=== PATIENT | female | born 2000 | race Caucasian/White ===

== ENCOUNTER 2021-05-27 10:12 | Outpatient (CLI) | payer BC | END 2021-05-27 10:13 | disposition home or self-care (01) | LOC: CSHCT 10:12 | PROVIDERS: ATTEND Physician Assistant | DX: G44.021 Chronic cluster headache, intractable (principal) | CPT/HCPCS: 70450 ==

== ENCOUNTER 2024-05-18 17:38 | Day surgery (SDC) | payer BC ==
[2024-05-18 18:07] VITALS: BMI 31.4
[2024-05-18] MEDS ORDERED: hydrALAZINE 20 MG/ML VIAL SLOW IVP PRN (18:20)
[2024-05-18 19:15] LABS: #Basophils 0.04 10x3/uL (0.0-0.2); #Eosinophils 0.07 10x3/uL (0.0-0.5); #Neutrophils 7.42 10x3/uL (1.5-8.4); %Basophils 0.4 % (0.0-2.0); %Eosinophils 0.7 % (0.0-6.0); %Lymphocytes 18.5 % (18.0-47.0); %Monocytes 8.6 % (0.0-10.0); Hematocrit 36.9 % (34.9-44.5); Hemoglobin 12.3 g/dL (12.0-15.5); Mean Corpuscular HGB CONC 33.3 g/dL (32.0-36.0); Mean Corpuscular Hemoglobin 29.2 pg (27.0-33.0); Mean Corpuscular Volume 87.6 fL (81.6-98.3); Mean Platelet Volume 12.2 fL (7.4-10.4); Platelet Count 238 10x3/uL (150-450); RBC Distribution Width 12.5 % (11.5-14.5); Red Blood Cell (RBC) Count 4.21 10x6/uL (3.90-5.03); White Blood Cell (WBC) Count 10.44 10x3/uL (3.5-10.5)
[2024-05-18 19:42] LABS: ALT (SGPT) 10 U/L (8-55); AST (SGOT) 15 U/L (5-34); Albumin 2.8 g/dL (3.5-5.0); Alkaline Phosphatase 122 U/L (40-110); Anion Gap 11 mmol/L (10-20); BUN (Urea Nitrogen) Less than 4 mg/dL (7.0-18.7); Bilirubin, Total 0.5 mg/dL (0.2-1.2); Calc. Creatinine Clearance 205 mL/min (70-130); Calcium 8.7 mg/dL (7.8-10.44); Carbon Dioxide 20 mmol/L (22-29); Chloride 109 mmol/L (98-107); Estimated GFR 130; Globulin 3.3 g/dL (2.4-3.5); Glucose 77 mg/dL (70-105); Potassium 3.2 mmol/L (3.5-5.1); Protein, Total 6.1 g/dL (6.0-8.3); Sodium 137 mmol/L (136-145)
[2024-05-18 19:45] LABS: Creatinine, Urine 29.94 mg/dL (47-110); Protein, Urine Random Quant Less than 10 mg/dL (1-14)
== END 2024-05-18 20:25 | disposition home or self-care (01) ==
LOC: CSHLD/OP 17:38
PROVIDERS: ATTEND Obstetrics & Gynecology
DX: O99.891 Other specified diseases and conditions complicating pregnancy (principal); R03.0 Elevated blood-pressure reading, without diagnosis of hypertension; O12.03 Gestational edema, third trimester; Z3A.39 39 weeks gestation of pregnancy; Z79.899 Other long term (current) drug therapy
CPT/HCPCS: 36415; 80053; 82570; 84156; 85025; 99283

== ENCOUNTER 2024-05-28 17:47 | Inpatient (IN) | payer BC ==
[2024-05-28] MEDS ORDERED: Lactated Ringer's 1,000 ML IV SCH (17:50)
[2024-05-28] MEDS ORDERED: Butorphanol Tartrate 1 MG/ML VIAL SLOW IVP PRN (17:50)
[2024-05-28] MEDS ORDERED: Oxytocin 30 units/NS 500 ML 500 ML IV SCH ×2 (17:50)
[2024-05-28] MEDS ORDERED: hydrALAZINE 20 MG/ML VIAL SLOW IVP PRN (17:50)
[2024-05-28] MEDS ORDERED: Lidocaine 1% (PF) 30 ML VIAL SC PRN (17:50)
[2024-05-28] MEDS ORDERED: HYDROcodone/Acetaminophen 5/325 mg Tablet PO PRN ×2 (17:50)
[2024-05-28] MEDS ORDERED: Ibuprofen 800 MG TAB PO PRN (17:50)
[2024-05-28] MEDS ORDERED: Promethazine HCl 25 MG/ML VIAL IM PRN (17:50)
[2024-05-28 18:16] VITALS: BMI 30.9
[2024-05-28] MEDS: Misoprostol 100 MCG TAB VAG SCH (18:51)
[2024-05-28 20:34] LABS: Hemoglobin 12.1 g/dL (12.0-15.5); Mean Corpuscular HGB CONC 33.6 g/dL (32.0-36.0); Mean Corpuscular Hemoglobin 28.9 pg (27.0-33.0); Mean Corpuscular Volume 85.9 fL (81.6-98.3); Mean Platelet Volume 12.9 fL (7.4-10.4); Platelet Count 225 10x3/uL (150-450); RBC Distribution Width 12.6 % (11.5-14.5); Red Blood Cell (RBC) Count 4.19 10x6/uL (3.90-5.03); White Blood Cell (WBC) Count 10.69 10x3/uL (3.5-10.5)
[2024-05-28 21:05] LABS: Syphilis Antibody Nonreactive (Nonreactive); Syphilis Antibody Index 0.03 S/CO (<1.00 Non-Reactive)
[2024-05-28 21:06] LABS: HBsAg Index 0.22 S/CO (0-0.99); Hep B Surf Ag - L&D Non-Reactive S/CO (NonReactive)
[2024-05-29] MEDS: Acetaminophen 500 MG TAB PO SCH (04:08)
[2024-05-29] MEDS: fentaNYL/Ropivacaine Epidural 100 ML ONE (07:16)
[2024-05-29] MEDS: Ondansetron PF 4 MG/2 ML Vial IVP PRN (08:00)
[2024-05-29] MEDS: Oxytocin 30 units/NS 500 ML 500 ML IV SCH (08:43)
[2024-05-29] MEDS ORDERED: diphenhydrAMINE 50 MG/ML VIAL IVP PRN (09:07)
[2024-05-29] MEDS ORDERED: Promethazine HCl 25 MG/ML VIAL IM PRN (09:07)
[2024-05-29] MEDS ORDERED: Ondansetron PF 4 MG/2 ML Vial IVP PRN ×2 (09:07→17:56)
[2024-05-29] MEDS ORDERED: Acetaminophen 325 MG TAB PO PRN (09:07)
[2024-05-29] MEDS ORDERED: Moisturizing Cream (Eucerin) 113 GM JAR TOP PRN (09:07)
[2024-05-29] MEDS ORDERED: ePHEDrine Sulfate 50 MG/10 ML VIAL SLOW IVP PRN (09:07)
[2024-05-29] MEDS ORDERED: Naloxone HCl 0.4 mg/ml Vial IVP PRN ×2 (09:07)
[2024-05-29] MEDS ORDERED: Lactated Ringer's 500 ML IV PRN (09:07)
[2024-05-29] MEDS ORDERED: Communication Order-Pharmacy FS SCH (09:15)
[2024-05-29] MEDS ORDERED: fentaNYL 2 mcg/Ropivacaine 0.2% Epidural 100 ML CADD EPIDURAL SCH (09:15)
[2024-05-29] MEDS ORDERED: Lanolin Ointment 7 GM TUBE TOP PRN (17:56)
[2024-05-29] MEDS ORDERED: Oxytocin 30 units/NS 500 ML 500 ML IV SCH (17:56)
[2024-05-29] MEDS ORDERED: Bisacodyl 10 MG SUPP PR PRN (17:56)
[2024-05-29] MEDS ORDERED: hydrALAZINE 20 MG/ML VIAL SLOW IVP PRN (17:56)
[2024-05-29] MEDS ORDERED: HYDROcodone/Acetaminophen 5/325 mg Tablet PO PRN (17:56)
[2024-05-29] MEDS ORDERED: diphenhydrAMINE 25 MG CAP PO PRN (17:56)
[2024-05-29] MEDS ORDERED: Preparation H Ointment 28 GM TUBE PR PRN (17:56)
[2024-05-29] MEDS ORDERED: Milk Of Magnesia 30 ML UDCUP PO PRN (17:56)
[2024-05-29] MEDS: Boostrix 0.5 ML (Tdap) VIAL (>/=7 yrs of age) IM ONE (18:04)
[2024-05-29] MEDS: HYDROcodone/Acetaminophen 5/325 mg Tablet PO PRN (18:16)
[2024-05-29] MEDS: Ferrous Sulfate 325 MG TAB PO SCH (18:17)
[2024-05-29] MEDS: Ibuprofen 800 MG TAB PO SCH (20:38)
[2024-05-29] MEDS: Docusate 100 MG CAP PO SCH (20:39)
[2024-05-29] MEDS: Benzocaine-Menthol 82.5 ML CAN TOP PRN (20:39)
[2024-05-30] MEDS: Ferrous Sulfate 325 MG TAB PO SCH (07:18)
[2024-05-30] MEDS: Prenatal Vitamin 1 TAB PO SCH (08:14)
[2024-05-31 07:49] VITALS: BP 124/78; TEMP 97.5
== END 2024-05-31 14:15 | disposition home or self-care (01) | DRG 807 ==
LOC: CSHLD 17:47 → CSHPP 05-29 17:30
PROVIDERS: ADMIT Obstetrics & Gynecology; ATTEND Obstetrics & Gynecology
PROC: 10D07Z6 Extraction of Products of Conception, Vacuum, Via Natural or Artificial Opening (ICD-10-PCS; principal; 2024-05-29)
PROC: 0KQM0ZZ Repair Perineum Muscle, Open Approach (ICD-10-PCS; 2024-05-29)
PROC: 0UQMXZZ Repair Vulva, External Approach (ICD-10-PCS; 2024-05-29)
DX: O48.0 Post-term pregnancy (principal); Z37.0 Single live birth; Z3A.40 40 weeks gestation of pregnancy; O70.1 Second degree perineal laceration during delivery; O71.82 Other specified trauma to perineum and vulva
CPT/HCPCS: 51702; 85027; 86780; 86850; 86900; 86901; 87340; J2405; J2590